=== PATIENT | male | born 1995 | race Caucasian/White ===

== ENCOUNTER 2022-10-14 07:26 | Emergency (ER) | payer BC ==
[~2022-10-14] VITALS: Ht 172.7 cm; Wt 111.1 kg
[2022-10-14 07:43] VITALS: BP 134/74; PULSE 66; RESP 18; TEMP 97.6; O2SAT 97
[2022-10-14] MEDS ORDERED: IBUP-2213 PO (08:05)
[2022-10-14] MEDS ORDERED: PRED20TA5 PO (08:05)
[2022-10-14 08:10] VITALS: BP 134/74; PULSE 66; RESP 18; TEMP 97.6; O2SAT 97
== END 2022-10-14 08:10 | disposition home or self-care (01) ==
LOC: MED 07:26
DX: J02.9 Acute pharyngitis, unspecified (principal); R07.0 Pain in throat
CPT/HCPCS: 99283